=== PATIENT | female | born 1945 | race Two or more races ===

== ENCOUNTER 2024-08-04 18:15 | Inpatient (IN) | payer MEDICARE, MEDICAID ==
[~2024-08-04] VITALS: Ht 152.4 cm; Wt 95.4 kg
[2024-08-04] MEDS ORDERED: 0.9% SODIUM CHLORIDE 10 ML SYRINGE IVP PRN (18:45)
[2024-08-04 19:01] LABS: BASOPHILS % (AUTO) 0.2 % (0.0-2.0); EOSINOPHILS % (AUTO) 0.6 % (1.0-6.0); HEMATOCRIT 24.8 % (36-46); LYMPHOCYTES # (AUTO) 1.4 K/uL (1.0-4.8); LYMPHOCYTES % (AUTO) 8.1 % (22.0-44.0); MEAN CORPUSCULAR HEMOGLOBIN 30.9 pg (26.0-34.0); MEAN CORPUSCULAR HGB CONC 32.2 G/dL (31.0-37.0); MEAN CORPUSCULAR VOLUME 96 fL (80-100); MONOCYTES % (AUTO) 5.8 % (2.0-9.0); NEUTROPHILS # (AUTO) 14.9 K/uL (1.8-7.7); PLATELET COUNT (AUTO) 269 K/uL (150-450); RED BLOOD CELL COUNT(AUTO) 2.58 MIL/uL (4.00-5.20); RED CELL DISTRIBUTION WIDTH 14.5 % (11.5-14.5); WHITE BLOOD COUNT (AUTO) 17.5 K/uL (4.5-11.0)
[2024-08-04] MEDS: SODIUM CHLORIDE 0.9% 1,500 ML IV ONE (19:04)
[2024-08-04 19:06] LABS: ANION GAP 9 mmol/L (8-16); CALCIUM, TOTAL 7.9 mg/dL (8.8-10.5); CARBON DIOXIDE 20 mmol/L (22-29); CHLORIDE 109 mmol/L (98-107); GLOMERULAR FILTR. RATE CALC 16 mL/min (>60); GLUCOSE,RANDOM 291 mg/dL (70-110); POTASSIUM 6.2 mmol/L (3.5-5.1); SODIUM SERUM 138 mmol/L (136-145); UREA NITROGEN, BLOOD 62 mg/dL (7-18)
[2024-08-04 19:08] LABS: PROTHROMBIN TIME 10.7 SEC (9.4-11.6)
[2024-08-04] MEDS: CefTRIAXone 1 GM/DEXTROSE 50 ML IV ONE (19:10)
[2024-08-04 19:11] LABS: NEUTROPHILS % (AUTO) 85.3 % (40.0-70.0)
[2024-08-04 19:15] LABS: LACTIC ACID 1.4 mmol/L (0.4-2.0)
[2024-08-04] MEDS: SODIUM ZIRCONIUM CYCLOSILICATE 10 GM POWDER PACKET PO ONE (19:57)
[2024-08-04] MEDS: DEXTROSE 50%-WATER 25 GM/50 ML SYRINGE IVP ONE (20:00)
[2024-08-04] MEDS: INSULIN REGULAR, HUMAN 100 UNITS/ML IVP ONE (20:10)
[2024-08-04 20:47] LABS: TROPONIN I-HIGH SENSITIVITY 14 ng/L (<51)
[2024-08-04 21:24] LABS: B-TYPE NATRIURETIC PEPTIDE 275 pg/mL (0-100)
[2024-08-04 21:41] LABS: APPEARANCE,URINE HAZY (CLEAR); BILIRUBIN,URINE NEGATIVE (NEGATIVE); COLOR,URINE YELLOW (YELLOW); GLUCOSE, URINE (UA) 70-100 mg/dL (NEGATIVE); KETONES,URINE NEGATIVE (NEGATIVE); LEUKOCYTE ESTERASE ,URINE LARGE (NEGATIVE); NITRATE,URINE POSITIVE (NEGATIVE); OCCULT BLOOD,URINE TRACE (NEGATIVE); PROTEIN,URINE 300-600,SEE CONFIRM mg/dL (NEGATIVE); SPECIFIC GRAVITIY, URINE 1.015 (1.003-1.030); UROBILINOGEN,URINE <=1.0 mg/dL (<=1.0)
[2024-08-04 21:55] LABS: BACTERIA,URINE Many /HPF (None Seen); RBC,URINE 0-2 /HPF (0-2); SQUAMOUS EPITHELIAL CELL,UR Few /LPF (None Seen)
[2024-08-04 21:56] LABS: SULFOSALICYLIC ACID,URINE 1+ (Negative)
[2024-08-04] MEDS: ACETAMINOPHEN 325 MG TABLET PO ONE (22:01)
[2024-08-04] MEDS ORDERED: BUSP5TAB20 PO (22:27)
[2024-08-04] MEDS ORDERED: ATOR10TA PO (22:27)
[2024-08-04] MEDS ORDERED: ALBUTEROL SULFATE 2.5 MG/0.5 ML NEB SOLUTION NEB PRN (22:30)
[2024-08-04] MEDS ORDERED: BISACODYL 10 MG RECTAL RECTAL SUPPOSITORY PR PRN (22:30)
[2024-08-04] MEDS ORDERED: IPRATROPIUM BROMIDE 0.5 MG/2.5 ML NEB SOLUTION NEB PRN (22:30)
[2024-08-04] MEDS ORDERED: MAGNESIUM HYDROXIDE SUSPENSION 30 ML UDCUP PO PRN (22:30)
[2024-08-04 22:38] LABS: CALCIUM, TOTAL 7.7 mg/dL (8.8-10.5); CREATININE 2.69 mg/dL (0.60-1.30); POTASSIUM 5.5 mmol/L (3.5-5.1)
[2024-08-04] MEDS ORDERED: OMEP20CA12 PO (22:46)
[2024-08-04] MEDS ORDERED: INSU100I47 SQ (22:46)
[2024-08-04] MEDS ORDERED: FURO40TA5 PO (22:46)
[2024-08-04] MEDS ORDERED: LATA5DRO OU (22:46)
[2024-08-04] MEDS ORDERED: METO25 PO (22:46)
[2024-08-04] MEDS ORDERED: CHOL200074 PO (22:46)
[2024-08-04] MEDS ORDERED: GABA-1216 PO (22:46)
[2024-08-04] MEDS ORDERED: BRIM5DRO10 OU (22:46)
[2024-08-04] MEDS ORDERED: SEMA0.258 SQ (22:46)
[2024-08-04] MEDS ORDERED: INSU3INS3 SQ (22:48)
[2024-08-04] MEDS ORDERED: GLIP-102 PO (22:48)
[2024-08-05] VITALS (8 sets, daily range): BP systolic 107–146; BP diastolic 47–71; PULSE 91–116; RESP 16–19; TEMP 98.3–101.6; O2SAT 92–98
[2024-08-05] MEDS: HEPARIN SODIUM,PORCINE 5,000 UNITS/ML VIAL SQ SCH
[2024-08-05] MEDS: ONDANSETRON HCL 4 MG/2 ML VIAL IVP PRN (04:30)
[2024-08-05] MEDS: ACETAMINOPHEN 325 MG TABLET PO PRN (05:45)
[2024-08-05 08:19] LABS: BASOPHILS % (AUTO) 0.2 % (0.0-2.0); EOSINOPHILS % (AUTO) 0.9 % (1.0-6.0); HEMATOCRIT 24.5 % (36-46); HEMOGLOBIN 7.8 g/dL (12.0-16.0); LYMPHOCYTES # (AUTO) 0.7 K/uL (1.0-4.8); LYMPHOCYTES % (AUTO) 5.2 % (22.0-44.0); MEAN CORPUSCULAR VOLUME 97 fL (80-100); MONOCYTES # (AUTO) 0.8 K/uL (0.1-1.0); PLATELET COUNT (AUTO) 252 K/uL (150-450); RED BLOOD CELL COUNT(AUTO) 2.53 MIL/uL (4.00-5.20); RED CELL DISTRIBUTION WIDTH 14.8 % (11.5-14.5); WHITE BLOOD COUNT (AUTO) 13.7 K/uL (4.5-11.0)
[2024-08-05 08:27] LABS: NEUTROPHILS % (AUTO) 87.7 % (40.0-70.0)
[2024-08-05 08:28] LABS: CREATININE 2.91 mg/dL (0.60-1.30); POTASSIUM 5.7 mmol/L (3.5-5.1)
[2024-08-05] MEDS: PANTOPRAZOLE SODIUM 40 MG DR TABLET PO SCH (08:42)
[2024-08-05] MEDS: CITRIC ACID/SODIUM CITRATE 30 ML SOLUTION UDCUP PO SCH (13:09)
[2024-08-05] MEDS ORDERED: INSULIN ASPART SQ SCH (16:00)
[2024-08-05] MEDS: GABAPENTIN 100 MG CAPSULE PO SCH (17:09)
[2024-08-05] MEDS: GlipiZIDE 5 MG TABLET PO SCH (17:09)
[2024-08-05] MEDS: INSULIN LISPRO 100 UNITS/ML SQ SCH (17:19)
[2024-08-05] MEDS ORDERED: [UNRECOGNIZED DRUG - OTHER] PO SCH (17:30)
[2024-08-05] MEDS ORDERED: SODIUM CHLORIDE 0.9% 250 ML IV ONE (20:38)
[2024-08-05] MEDS: INSULIN GLARGINE,HUM.REC.ANLOG 100 UNITS/ML SQ SCH (20:44)
[2024-08-05] MEDS: CefTRIAXone 1 GM/DEXTROSE 50 ML IV SCH (20:44)
[2024-08-05] MEDS ORDERED: [UNRECOGNIZED DRUG - OTHER] SQ SCH (21:00)
[2024-08-05] MEDS ORDERED: [UNRECOGNIZED DRUG - OTHER] OU SCH (21:00)
[2024-08-05 21:36] LABS: GLUCOMETER DEV NAME(LOC) 5S.2D; GLUCOSE,POINT OF CARE 191 MG/DL (70-110)
[2024-08-05 21:36] LABS: GLUCOMETER DEV NAME(LOC) 5S.2D; GLUCOSE,POINT OF CARE 103 MG/DL (70-110)
[2024-08-06 04:05] VITALS: BP 113/55; PULSE 105; RESP 19; TEMP 100.3; O2SAT 97
[2024-08-06] MEDS: BusPIRone HCL 5 MG TABLET PO PRN (04:24)
[2024-08-06 07:16] LABS: MAGNESIUM 1.8 mg/dL (1.80-2.40)
[2024-08-06 07:19] LABS: BASOPHILS % (AUTO) 0.3 % (0.0-2.0); HEMATOCRIT 24.8 % (36-46); HEMOGLOBIN 8.1 g/dL (12.0-16.0); LYMPHOCYTES # (AUTO) 1.2 K/uL (1.0-4.8); LYMPHOCYTES % (AUTO) 8.6 % (22.0-44.0); MEAN CORPUSCULAR HEMOGLOBIN 31.4 pg (26.0-34.0); MEAN CORPUSCULAR HGB CONC 32.5 G/dL (31.0-37.0); MEAN CORPUSCULAR VOLUME 97 fL (80-100); MONOCYTES # (AUTO) 0.7 K/uL (0.1-1.0); MONOCYTES % (AUTO) 5.2 % (2.0-9.0); NEUTROPHILS # (AUTO) 11.7 K/uL (1.8-7.7); NEUTROPHILS % (AUTO) 84.9 % (40.0-70.0); PLATELET COUNT (AUTO) 319 K/uL (150-450); RED BLOOD CELL COUNT(AUTO) 2.56 MIL/uL (4.00-5.20); RED CELL DISTRIBUTION WIDTH 14.7 % (11.5-14.5); WHITE BLOOD COUNT (AUTO) 13.7 K/uL (4.5-11.0)
[2024-08-06 07:46] LABS: CALCIUM, TOTAL 8.5 mg/dL (8.8-10.5); CREATININE 3.61 mg/dL (0.60-1.30)
[2024-08-06 08:00] VITALS: BP 139/91; PULSE 96; RESP 18; TEMP 100.4; O2SAT 97
[2024-08-06] MEDS: OMEPRAZOLE 20 MG CAPSULE PO SCH (08:16)
[2024-08-06] MEDS: ATORVASTATIN CALCIUM 10 MG TABLET PO SCH (08:16)
[2024-08-06] MEDS: METOPROLOL TARTRATE 25 MG TABLET PO SCH (08:16)
[2024-08-06] MEDS: SODIUM ZIRCONIUM CYCLOSILICATE 10 GM POWDER PACKET PO SCH (08:16)
[2024-08-06] MEDS: CHOLECALCIFEROL (VIT D3) 2,000 UNITS [50 MCG] TABLET PO SCH (08:33)
[2024-08-06] MEDS: BRIMONIDINE TARTRATE 0.15% 5 ML OPHTHALMIC SOLUTION OU SCH (08:33)
[2024-08-06] MEDS ORDERED: [UNRECOGNIZED DRUG - OTHER] PO SCH (09:00)
[2024-08-06 09:40] LABS: GLUCOMETER DEV NAME(LOC) 5S.2D; GLUCOSE,POINT OF CARE 108 MG/DL (70-110)
[2024-08-06 09:41] LABS: GLUCOMETER DEV NAME(LOC) 5N.1D; GLUCOSE,POINT OF CARE 98 MG/DL (70-110)
[2024-08-06 09:41] LABS: GLUCOMETER DEV NAME(LOC) 5S.2D; GLUCOSE,POINT OF CARE 96 MG/DL (70-110)
[2024-08-06] MEDS: EPOETIN ALFA 10,000 UNITS/ML VIAL SQ ONE (11:44)
[2024-08-06] MEDS ORDERED: BRIN8DRO2 OU (11:57)
[2024-08-06] MEDS ORDERED: CLON0.1T2 PO (11:57)
[2024-08-06] MEDS ORDERED: FLUT16H NASAL (11:57)
[2024-08-06] MEDS ORDERED: FERR-72 PO (11:57)
[2024-08-06] MEDS ORDERED: GLIP5TAB15 PO (11:58)
[2024-08-06] MEDS ORDERED: GLUC1AUT2 SQ (11:58)
[2024-08-06 12:00] VITALS: BP 123/70; PULSE 92; RESP 20; TEMP 99.6; O2SAT 96
[2024-08-06 16:00] VITALS: BP 129/80; PULSE 94; RESP 18; TEMP 99.4; O2SAT 97
[2024-08-06 17:01] LABS: % IRON SATURATION 7.6 % (22-44)
[2024-08-06 20:00] VITALS: BP 135/71; PULSE 111; RESP 19; TEMP 101.6; O2SAT 93
[2024-08-06 21:01] LABS: GLUCOMETER DEV NAME(LOC) 5S.2D; GLUCOSE,POINT OF CARE 109 MG/DL (70-110)
[2024-08-06 21:10] LABS: GLUCOMETER DEV NAME(LOC) 5N.1D; GLUCOSE,POINT OF CARE 80 MG/DL (70-110)
[2024-08-06 22:52] LABS: APPEARANCE,URINE HAZY (CLEAR); BILIRUBIN,URINE NEGATIVE (NEGATIVE); COLOR,URINE YELLOW (YELLOW); GLUCOSE, URINE (UA) NEGATIVE (NEGATIVE); KETONES,URINE NEGATIVE (NEGATIVE); LEUKOCYTE ESTERASE ,URINE LARGE (NEGATIVE); NITRATE,URINE NEGATIVE (NEGATIVE); OCCULT BLOOD,URINE MODERATE (NEGATIVE); PH,URINE 5.5 (5.0-8.0); PROTEIN,URINE 100-200,SEE CONFIRM mg/dL (NEGATIVE); SPECIFIC GRAVITIY, URINE 1.013 (1.003-1.030); UROBILINOGEN,URINE <=1.0 mg/dL (<=1.0)
[2024-08-06 22:54] LABS: CREATININE,URINE RANDOM 88.1 mg/dL (30.0-125.0)
[2024-08-06 22:55] LABS: PROTEIN,URINE RANDOM 216 mg/dL (0-11.9); SODIUM,URINE RANDOM 37 mmol/l (20-110); UREA NITROGEN,URINE RANDOM 477 mg/dL (350-1000)
[2024-08-06 23:42] LABS: BACTERIA,URINE Many /HPF (None Seen); SQUAMOUS EPITHELIAL CELL,UR Few /LPF (None Seen); SULFOSALICYLIC ACID,URINE 2+ (Negative); WBC,URINE 26-50 /HPF (0-5)
[2024-08-07] VITALS (9 sets, daily range): BP systolic 115–170; BP diastolic 44–79; PULSE 83–111; RESP 18–24; TEMP 97.9–99.4; O2SAT 93–97
[2024-08-07 01:37] LABS: GLUCOMETER DEV NAME(LOC) 5N.1D; GLUCOSE,POINT OF CARE 76 MG/DL (70-110)
[2024-08-07] MEDS: DEXTROSE 50%-WATER 25 GM/50 ML SYRINGE IVP ONE (06:43)
[2024-08-07 07:01] LABS: BASOPHILS % (AUTO) 0.5 % (0.0-2.0); EOSINOPHILS % (AUTO) 2.9 % (1.0-6.0); HEMATOCRIT 23.6 % (36-46); HEMOGLOBIN 7.6 g/dL (12.0-16.0); LYMPHOCYTES # (AUTO) 1.1 K/uL (1.0-4.8); LYMPHOCYTES % (AUTO) 11.1 % (22.0-44.0); MEAN CORPUSCULAR HEMOGLOBIN 31.1 pg (26.0-34.0); MEAN CORPUSCULAR HGB CONC 32.2 G/dL (31.0-37.0); MEAN CORPUSCULAR VOLUME 97 fL (80-100); MONOCYTES # (AUTO) 0.7 K/uL (0.1-1.0); MONOCYTES % (AUTO) 6.4 % (2.0-9.0); NEUTROPHILS # (AUTO) 8.2 K/uL (1.8-7.7); NEUTROPHILS % (AUTO) 79.1 % (40.0-70.0); PLATELET COUNT (AUTO) 282 K/uL (150-450); RED BLOOD CELL COUNT(AUTO) 2.44 MIL/uL (4.00-5.20); RED CELL DISTRIBUTION WIDTH 14.8 % (11.5-14.5); WHITE BLOOD COUNT (AUTO) 10.3 K/uL (4.5-11.0)
[2024-08-07 12:36] LABS: GLUCOMETER DEV NAME(LOC) 5N.1D; GLUCOSE,POINT OF CARE 52 MG/DL (70-110)
[2024-08-07 12:36] LABS: GLUCOMETER DEV NAME(LOC) 5N.1D; GLUCOSE,POINT OF CARE 145 MG/DL (70-110)
[2024-08-07 20:31] LABS: GLUCOMETER DEV NAME(LOC) 5S.2D; GLUCOSE,POINT OF CARE 122 MG/DL (70-110)
[2024-08-07 20:31] LABS: GLUCOMETER DEV NAME(LOC) 5S.2D; GLUCOSE,POINT OF CARE 165 MG/DL (70-110)
[2024-08-07] MEDS: ZOLPIDEM TARTRATE 5 MG TABLET PO PRN (22:40)
[2024-08-08] VITALS (7 sets, daily range): BP systolic 141–167; BP diastolic 69–88; PULSE 93–105; RESP 18–21; TEMP 98.1–98.8; O2SAT 95–97
[2024-08-08] MEDS ORDERED: SODIUM CHLORIDE 0.9% 500 ML IV ONE (01:11)
[2024-08-08 06:56] LABS: GLUCOMETER DEV NAME(LOC) 5S.2D; GLUCOSE,POINT OF CARE 230 MG/DL (70-110)
[2024-08-08 06:56] LABS: GLUCOMETER DEV NAME(LOC) 5S.2D; GLUCOSE,POINT OF CARE 196 MG/DL (70-110)
[2024-08-08 07:09] LABS: BASOPHILS % (AUTO) 0.9 % (0.0-2.0); EOSINOPHILS % (AUTO) 3.4 % (1.0-6.0); HEMATOCRIT 22.5 % (36-46); HEMOGLOBIN 7.3 g/dL (12.0-16.0); LYMPHOCYTES # (AUTO) 1.1 K/uL (1.0-4.8); LYMPHOCYTES % (AUTO) 13.1 % (22.0-44.0); MEAN CORPUSCULAR HEMOGLOBIN 31.4 pg (26.0-34.0); MEAN CORPUSCULAR HGB CONC 32.6 G/dL (31.0-37.0); MEAN CORPUSCULAR VOLUME 97 fL (80-100); MONOCYTES # (AUTO) 0.8 K/uL (0.1-1.0); MONOCYTES % (AUTO) 9.5 % (2.0-9.0); NEUTROPHILS # (AUTO) 6.3 K/uL (1.8-7.7); NEUTROPHILS % (AUTO) 73.1 % (40.0-70.0); PLATELET COUNT (AUTO) 305 K/uL (150-450); RED BLOOD CELL COUNT(AUTO) 2.33 MIL/uL (4.00-5.20); RED CELL DISTRIBUTION WIDTH 14.4 % (11.5-14.5); WHITE BLOOD COUNT (AUTO) 8.6 K/uL (4.5-11.0)
[2024-08-08 11:45] LABS: GLUCOMETER DEV NAME(LOC) 5S.2D; GLUCOSE,POINT OF CARE 280 MG/DL (70-110)
[2024-08-09 00:41] VITALS: BP 148/73; PULSE 102; RESP 18; TEMP 98.9; O2SAT 96
[2024-08-09 05:03] VITALS: BP 142/68; PULSE 102; RESP 20; TEMP 97.7; O2SAT 97
[2024-08-09 08:00] VITALS: BP 143/84; PULSE 93; RESP 19; TEMP 98.6; O2SAT 97
[2024-08-09] MEDS ORDERED: GABAPENTIN 100 MG CAPSULE PO SCH (09:00)
[2024-08-09 12:00] VITALS: BP 150/86; PULSE 93; RESP 18; TEMP 98.1; O2SAT 95
[2024-08-09 13:53] LABS: BASOPHILS % (AUTO) 0.3 % (0.0-2.0); EOSINOPHILS % (AUTO) 2.2 % (1.0-6.0); HEMATOCRIT 23.9 % (36-46); HEMOGLOBIN 7.7 g/dL (12.0-16.0); LYMPHOCYTES # (AUTO) 0.7 K/uL (1.0-4.8); LYMPHOCYTES % (AUTO) 7.5 % (22.0-44.0); MEAN CORPUSCULAR HEMOGLOBIN 30.8 pg (26.0-34.0); MEAN CORPUSCULAR VOLUME 96 fL (80-100); MONOCYTES # (AUTO) 0.7 K/uL (0.1-1.0); MONOCYTES % (AUTO) 8.6 % (2.0-9.0); NEUTROPHILS # (AUTO) 7.1 K/uL (1.8-7.7); NEUTROPHILS % (AUTO) 81.4 % (40.0-70.0); PLATELET COUNT (AUTO) 316 K/uL (150-450); RED BLOOD CELL COUNT(AUTO) 2.49 MIL/uL (4.00-5.20); RED CELL DISTRIBUTION WIDTH 14.3 % (11.5-14.5); WHITE BLOOD COUNT (AUTO) 8.7 K/uL (4.5-11.0)
[2024-08-09 14:09] LABS: ALBUMIN 1.7 g/dL (3.4-5.0); BILIRUBIN,TOTAL 0.2 mg/dL (0.1-1.0); CALCIUM, TOTAL 8.5 mg/dL (8.8-10.5); CREATININE 2.62 mg/dL (0.60-1.30); MAGNESIUM 1.9 mg/dL (1.80-2.40); PHOSPHORUS 3.2 mg/dL (2.5-4.9); POTASSIUM 4.1 mmol/L (3.5-5.1)
[2024-08-09] MEDS: METOPROLOL TARTRATE 25 MG TABLET PO ONE (15:55)
[2024-08-09 16:00] VITALS: BP 122/64; PULSE 93; RESP 19; TEMP 97.7; O2SAT 96
[2024-08-09 20:07] VITALS: BP 140/74; PULSE 89; RESP 19; TEMP 97.9; O2SAT 93
[2024-08-09] MEDS: METOPROLOL TARTRATE 50 MG TABLET PO SCH (20:10)
[2024-08-10 00:06] VITALS: BP 140/62; PULSE 90; RESP 19; TEMP 98.2; O2SAT 98
[2024-08-10 04:39] VITALS: BP 148/63; PULSE 95; RESP 19; TEMP 98.2; O2SAT 94
[2024-08-10 07:30] VITALS: BP 144/73; PULSE 96; RESP 21; TEMP 98; O2SAT 97
[2024-08-10 08:00] LABS: CALCIUM, TOTAL 8.3 mg/dL (8.8-10.5); CREATININE 2.36 mg/dL (0.60-1.30); MAGNESIUM 1.8 mg/dL (1.80-2.40); PHOSPHORUS 2.9 mg/dL (2.5-4.9); POTASSIUM 3.5 mmol/L (3.5-5.1)
[2024-08-10 08:04] LABS: BASOPHILS % (AUTO) 0.3 % (0.0-2.0); EOSINOPHILS % (AUTO) 3.1 % (1.0-6.0); HEMATOCRIT 24.1 % (36-46); HEMOGLOBIN 7.9 g/dL (12.0-16.0); LYMPHOCYTES # (AUTO) 0.8 K/uL (1.0-4.8); LYMPHOCYTES % (AUTO) 9.6 % (22.0-44.0); MEAN CORPUSCULAR HEMOGLOBIN 31.3 pg (26.0-34.0); MEAN CORPUSCULAR HGB CONC 32.9 G/dL (31.0-37.0); MEAN CORPUSCULAR VOLUME 95 fL (80-100); MONOCYTES # (AUTO) 0.8 K/uL (0.1-1.0); MONOCYTES % (AUTO) 9.2 % (2.0-9.0); NEUTROPHILS # (AUTO) 6.7 K/uL (1.8-7.7); NEUTROPHILS % (AUTO) 77.8 % (40.0-70.0); PLATELET COUNT (AUTO) 343 K/uL (150-450); RED BLOOD CELL COUNT(AUTO) 2.53 MIL/uL (4.00-5.20); RED CELL DISTRIBUTION WIDTH 13.9 % (11.5-14.5); WHITE BLOOD COUNT (AUTO) 8.6 K/uL (4.5-11.0)
[2024-08-10 11:28] VITALS: BP 123/52; PULSE 90; RESP 20; TEMP 98.1; O2SAT 94
[2024-08-10 14:49] VITALS: BP 134/66; PULSE 88; RESP 18; TEMP 98; O2SAT 95
[2024-08-11] MEDS ORDERED: SODIUM ZIRCONIUM CYCLOSILICATE 10 GM POWDER PACKET PO SCH (09:00)
== END 2024-08-10 16:55 | DRG 871 ==
LOC: EMS 18:15 → EDH 21:44 → 5S 08-05 00:58
PROVIDERS: ADMIT Hospitalist; ATTEND Hospitalist
DX: A41.9 Sepsis, unspecified organism (principal); J18.9 Pneumonia, unspecified organism; J96.00 Acute respiratory failure, unspecified whether with hypoxia or hypercapnia; N39.0 Urinary tract infection, site not specified; N17.9 Acute kidney failure, unspecified; N18.4 Chronic kidney disease, stage 4 (severe); E87.20 Acidosis, unspecified; E87.5 Hyperkalemia; I12.9 Hypertensive chronic kidney disease with stage 1 through stage 4 chronic kidney disease, or unspecified chronic kidney disease; E11.22 Type 2 diabetes mellitus with diabetic chronic kidney disease; N25.0 Renal osteodystrophy; D63.1 Anemia in chronic kidney disease; B96.1 Klebsiella pneumoniae [K. pneumoniae] as the cause of diseases classified elsewhere; E86.0 Dehydration; R62.7 Adult failure to thrive; S00.03XA Contusion of scalp, initial encounter; W18.30XA Fall on same level, unspecified, initial encounter; Z88.0 Allergy status to penicillin; Z88.1 Allergy status to other antibiotic agents; Z88.2 Allergy status to sulfonamides; Z88.5 Allergy status to narcotic agent; Y93.89 Activity, other specified; Y92.89 Other specified places as the place of occurrence of the external cause; Y99.8 Other external cause status
CPT/HCPCS: 70450; 71045; 76770; 80048; 80053; 81001; 81002; 82570; 82728; 82962; 83540; 83550; 83605; 83735; 83880; 84100; 84145; 84156; 84300; 84484; 84540; 85025; 85610; 87040; 87086; 93005; 94640; 96365; 96375; 97163; 97167; 97530; 97535; 99291; G0378; J0696; J0885; J1644; J1815; J2405; J7040; J7050; 36415-L1; 36415-TC; J7613